=== PATIENT | male | born 1990 | race Caucasian/White ===

== ENCOUNTER 2021-01-08 13:23 | Emergency (ER) | payer BC, OTHER ==
[~2021-01-08] VITALS: Ht 190.5 cm; Wt 98.8 kg
--- NOTE | 2021-01-08 14:23 | NUR ---
FANNY HOWELL AT .
[2021-01-08] MEDS ORDERED: ONDANSETRON 2MG/ML, 2ML IVPush ONE (14:30)
[2021-01-08] MEDS ORDERED: SODIUM CHLORIDE FLUSH 10ML SYR IVF ONE (14:30)
[2021-01-08] MEDS ORDERED: ONDANSETRON 2MG/ML, 2ML ONE (14:42)
[2021-01-08] MEDS ORDERED: MORPHINE SULFATE 4 MG/ML, 1ML ONE ×2 (14:42→16:11)
[2021-01-08 14:46] LABS: BASOPHILS % (AUTO) 1 % (0-1); EOSINOPHILS % (AUTO) 1 % (1-7); LYMPHOCYTES % (AUTO) 24 % (22-44); MEAN CORPUSCULAR HEMOGLOBIN 29.9 pg (27.5-34.5); MEAN CORPUSCULAR HGB CONC 33.8 g/dL (33.2-36.2); MEAN PLATELET VOLUME 8.1 fL (7.4-10.4); MONOCYTES % (AUTO) 6 % (2-9); NEUTROPHILS % (AUTO) 68 % (42-75); PLATELET COUNT 290 x10^3/uL (130-400); RED BLOOD COUNT 5.26 x10^6/uL (4.38-5.82); RED CELL DISTRIBUTION WIDTH 13.5 % (9.4-14.8)
[2021-01-08] MEDS: MORPHINE SULFATE 4 MG/ML, 1ML IVPush PRN ×2 (14:46→16:16)
--- NOTE | 2021-01-08 14:51 | NUR ---
PT C/O INTERMITTENT ABD PAIN. SEES GI MD FOR IBS SYMPTOMS. AT BS. POC RV'WD WITH PT, MEDICATED PER ORDERS.
[2021-01-08 14:57] LABS: ALANINE AMINOTRANSFERASE 37 U/L (12-78); ALBUMIN 3.9 g/dL (3.4-5.0); ANION GAP 5 mmol/L (5-15); CALCIUM 8.8 mg/dL (8.5-10.1); CHLORIDE 108 mmol/L (98-107); CREATININE 0.91 mg/dL (0.7-1.3)
[2021-01-08 14:59] LABS: ALKALINE PHOSPHATASE 56 U/L (45-117); BILIRUBIN,TOTAL 0.6 mg/dL (0.2-1.0); TOTAL PROTEIN 7.3 g/dL (6.4-8.2)
[2021-01-08] MEDS ORDERED: OMNIPAQUE 350 MG/ML, 100ML BOTTLE ONE (15:24)
[2021-01-08 15:54] LABS: MICROSCOPIC NOT IND
[2021-01-08] MEDS ORDERED: MAALOX/HYOSCYAMINE/LIDOCAINE 45 ML BTL ONE (16:11)
[2021-01-08] MEDS ORDERED: MAALOX/HYOSCYAMINE/LIDOCAINE 45 ML BTL PO ONE (16:30)
[2021-01-08 16:45] VITALS: BP 121/82
--- NOTE | 2021-01-08 16:59 | NUR ---
PT VERBALIZES RELIEF OF EPIGASTRIC PAIN AFTER MORPHINE. ER PA WAS IN FOR RECHECK. D/C INSTRUCTIONS, MEDS & F/U APPT'S RV'WD WITH PT, HE VERBALIZES UNDERSTANDING. AMBULATED OUT OF ED WITH SPOUSE WITHOUT DIFFICULTY.
== END 2021-01-08 17:00 | disposition home or self-care (01) ==
LOC: ED 14:59
DX: K21.00 Gastro-esophageal reflux disease with esophagitis, without bleeding (principal); R94.31 Abnormal electrocardiogram [ECG] [EKG]
CPT/HCPCS: 36415; 74177; 80053; 81003; 83690; 85025; 93005; 96374; 96375; 96376; 99285; J2270; J2405; Q9967